=== PATIENT | female | born 1990 ===

== ENCOUNTER 2016-12-25 17:37 | Emergency (ER) | payer OTHER, MEDICAID ==
[2016-12-25 17:37] VITALS: BMI 27.2
[2016-12-25 17:53] VITALS: BP 107/69; PULSE 70; RESP 18; TEMP 98.6; O2SAT 100
--- NOTE | 2016-12-25 18:44 | ED PDOC ---
Arrival/HPI - General Chief Complaint: Trauma Time Seen by Provider: 12/25/16 18:03 - History of Present Illness Narrative History of Present Illness (Text): 12/25/16 18:30 26-year-old female presents the emergency department with left ankle and mid thoracic back pain. Patient states she was standing and fell backwards hitting her left ankle and spine on a rail. Patient denies any head, abdomen, neck, pelvis, or other injuries. Denies loss of consciousness. Patient denies syncope or near syncope. Patient describes a mechanical fall. Patient states that she has no headache, no nausea, vomiting, photophobia. Past Medical History - Provider Review Nursing Documentation Reviewed: Yes - Past History Past History: No Previous - Infectious Disease Hx of Infectious Diseases: None - Past Medical History Past Medical History: No Previous - Psychiatric Hx Depression: No Hx Emotional Abuse: No Hx Physical Abuse: No Hx Substance Use: No - Past Surgical History Past Surgical History: No Previous - Surgical History Hx Section: Yes - Suicidal Assessment Feels Threatened In Home Enviroment: No Family/Social History Family/Social History: Unknown Family HX Smoking Status: Never Smoked Hx Alcohol Use: Yes Hx Substance Use: No Allergies/Home Meds Allergies/Adverse Reactions: Allergies Sulfa (Sulfonamide Antibiotics) Allergy (Verified 12/25/16 17:54) RASH Home Medications: Home Meds Medication Instructions Recorded Confirmed No Known Home Med 12/25/16 12/25/16 Physical Exam - Physical Exam Narrative Physical Exam (Text): - Review of Systems Constitutional: Normal. absent: Fatigue, Weight Change, Fevers Eyes: Normal ENT: denies sore throat, denies tristhmus Respiratory: Normal. absent: SOB, Cough, Sputum Cardiovascular: absent: Chest Pain, Palpitations, Syncope Gastrointestinal: Normal. absent: Abdominal Pain, Diarrhea, Nausea, Vomiting Genitourinary: Normal. absent: Dysuria, Frequency, Hematuria, vaginal bleeding Musculoskeletal: Ankle pain, back pain. absent: Arthralgias, Neck Pain Skin: no rashes, no erythema Neurological: absent: Focal Weakness Endocrine: Normal Hemo/Lymphatic: Normal Psychiatric: No suicidal or homicidal ideations Physical exam Patient appears age appropriate in no distress, speaking full sentences without difficulty Head atraumatic. No nasal bone deformity or tenderness, no facial or jaw pain/ swelling. No neck midline tenderness, and lumbar spine with no midline tenderness. Pt moving b/l upper and lower extremities without difficulty, 5/5 strength, with full active and passive ROM. Distal neurovasc fully intact. Abd soft/nt/ng, no hematomas, no peritoneal signs. Neg. pelvic rock. Midthoracic spine with point tenderness and erythema around the point of impact. Patient's left ankle with full active and passive range of motion, no foot pain or tenderness, no tenderness to the base of the fifth metatarsal. Distal neurovascular fully intact. Remarkable on examination, with no pain or tenderness over proximal fibular head. Has no rib tenderness to palpation, no bruising. Patient is able to take deep breaths without difficulty or pain. - Systems Exam Head: Present: Atraumatic, Normocephalic Pupils: Present: PERRL Extroacular Muscles: Present: EOMI Conjunctiva: Present: Normal Mouth: Present: Moist Mucous Membranes Neck: Present: Normal Range of Motion. No: MIDLINE TENDERNESS, Paraspinal Tenderness Respiratory/Chest: Present: Clear to Auscultation, Good Air Exchange. No: Respiratory Distress, Accessory Muscle Use, Tachypneic Cardiovascular: Present: Regular Rate and Rhythm, Normal S1, S2, Peripheal Pulses Present. No: Murmurs Abdomen: Present: Normal Bowel Sounds. No: Tenderness, Distention, Peritoneal Signs, Rebound, Guarding Upper Extremity: Present: Normal Inspection. No: Cyanosis, Edema Lower Extremity: Ambulate with steady gait. No: Edema Neurological: Present: GCS=15, Speech Normal, cranial nerves II through XII fully intact with no cerebellar abnormality, neurosensory fully intact. No focal neurological deficits. Skin: Present: Warm, Dry, Normal Color. No: Rashes Lymphatic: Present: OX3, NI, NC Psychiatric: Present: Alert, Oriented x 3, Normal Insight, Normal Concentration Vital Signs Reviewed: Yes Vital Signs Temp Pulse Resp BP Pulse Ox 12/25/16 17:50 98.6 F 70 18 107/69 100 Temperature: Afebrile Blood Pressure: Normal Pulse: Regular Respiratory Rate: Normal Appearance: Positive for: Well-Appearing Pain Distress: None Mental Status: Positive for: Alert and Oriented X 3 Medical Decision Making ED Course and Treatment: 26-year-old female in the emergency department with midthoracic back pain and left ankle pain after a mechanical fall at work. On examination patient has midthoracic spine with point tenderness and erythema around the point of impact. LEs with no paresthesias, no neuro deficits. Patient 's left ankle with full active and passive range of motion, no foot pain or tenderness, no tenderness to the base of the fifth metatarsal. Distal neurovascular fully intact. Remarkable on examination, with no pain or tenderness over proximal fibular head. Has no rib tenderness to palpation, no bruising. Patient is able to take deep breaths without difficulty or pain. Patient is ambulating and bearing weight without any difficulty. Pain medication and x-rays ordered. 12/25/16 18:48 Patient's x-rays show no acute fractures or dislocations. had an extensive d/w pt that although xrays are negative for any acute bony abnormality, it is still very important to fu with pmd and ortho specialist for further w/u and testing such as MRI to r/o any ligamentous/tendenous/meniscal injury. Pt verbalized full understanding of above discussion. Pt states she understands to return to the ER right away for new or worsening symptoms or for inability to f/u with PMD or specialist as instructed. Patient states that she fully agrees with and understands discharge instructions. States that she agrees with the plan and disposition. Verbalized and repeated discharge instructions and plan. I have given the patient opportunity to ask any additional questions. Encounter translated by MONA Roberts. - RAD Interpretation Radiology Orders: 12/25/16 18:03 ANKLE LEFT 3 VIEWS ROUTINE [RAD] Stat THORACIC SPINE [DORSAL (THORACIC) SPINE] [RAD] Stat - Medication Orders Current Medication Orders: Discontinued Medications Ketorolac Tromethamine (Toradol) 15 mg IM STAT STA Stop: 12/25/16 18:04 Last Admin: 12/25/16 18:28 Dose: 15 mg Disposition/Present on Arrival - Present on Arrival Any Indicators Present on Arrival: No History of DVT/PE: No History of Uncontrolled Diabetes: No Urinary Catheter: No History of Decub. Ulcer: No History Surgical Site Infection Following: None - Disposition Have Diagnosis and Disposition been Completed?: Yes Diagnosis: Ankle injury, Back injury Disposition: HOME/ ROUTINE Disposition Time: 18:52 Patient Plan: Discharge Patient Problems: Current Active Problems Problem Status Onset Ankle injury Acute Back injury Acute Condition: GOOD Discharge Instructions (ExitCare): Ankle Sprain (ED), Acute Low Back Pain (ED) , Ankle Stirrup Splint (ED), Back Pain (ED), Swollen Joint (ED) Additional Instructions: Please take [id number] Motrin or Tylenol for pain PLEASE RETURN TO THE EMERGENCY DEPARTMENT FOR NEW OR WORSENING SYMPTOMS. RETURN RIGHT AWAY IF YOU CANNOT FOLLOW UP WITH YOUR PRIMARY CARE DOCTOR, CLINIC, OR SPECIALIST IN 1-2 DAYS. Referrals: Ubaldo Garcia MD [Staff Provider] - Follow up with primary Cristino Ortiz DO [Staff Provider] - Follow up with primary Forms: [facility] [facility] (Armenian), WORK NOTE
--- NOTE | 2016-12-25 18:59 | RAD ---
PROCEDURE: Left Ankle Radiographs. HISTORY: fall COMPARISON: None available FINDINGS: BONES: No acute displaced fracture. JOINTS: No dislocation. SOFT TISSUES: Soft tissue swelling. No evidence of radiopaque foreign body. OTHER FINDINGS: None. IMPRESSION: Soft tissue swelling. No acute displaced fracture, dislocation, or significant joint effusion identified. If symptoms persist or if there is clinical concern, x-ray follow-up in 7-10 days should be considered.
--- NOTE | 2016-12-25 19:02 | RAD ---
HISTORY: fall COMPARISON: None available. FINDINGS: BONES: Alignment maintained. No acute displaced fracture identified. DISC SPACES: Unremarkable. SOFT TISSUES: Unremarkable. No evidence of radiopaque foreign body. OTHER FINDINGS: None. IMPRESSION: No acute displaced fracture or subluxation identified. Cross-sectional imaging may be considered for further evaluation if high clinical index of suspicion for occult fracture.
== END 2016-12-25 19:30 | disposition home or self-care (01) ==
LOC: ED 17:37
DX: S99.912A Unspecified injury of left ankle, initial encounter (principal); S29.9XXA Unspecified injury of thorax, initial encounter; W18.30XA Fall on same level, unspecified, initial encounter
CPT/HCPCS: 72070; 73610; 96372; 99283; J1885